=== PATIENT | male | born 1935 | race Two or more races ===

== ENCOUNTER → 2019-09-22 12:01 | Outpatient (CLI) | payer MEDICARE, SELFPAY | PROVIDERS: Visit Provider Nurse Practitioner Family | DX: I25.810 Atherosclerosis of coronary artery bypass graft(s) without angina pectoris (principal); I44.0 Atrioventricular block, first degree; I44.1 Atrioventricular block, second degree; I49.5 Sick sinus syndrome; R42 Dizziness and giddiness; Z95.1 Presence of aortocoronary bypass graft | CPT/HCPCS: 93306 ==

== ENCOUNTER 2019-10-01 09:26 | Day surgery (SDC) | payer MEDICARE, SELFPAY ==
[2019-10-01] VITALS (12 sets, daily range): BP systolic 86–162; BP diastolic 42–85; PULSE 65–90; RESP 16–18; TEMP 36.7; O2SAT 96–100; BMI 24.4
[2019-10-01 10:18] LABS: Basophils % 0.2 % (0.1-2.0); Eosinophils # 0.3 K/mm3 (0.0-0.4); Eosinophils % 3.4 % (0.1-12.0); Hematocrit 45.3 % (42.0-52.0); Hemoglobin 14.9 g/dL (14.1-18.0); Lymphocytes # 2.1 K/mm3 (0.7-4.5); Mean Corpuscular Hemoglobin 30.9 pg (27.0-31.2); Mean Corpuscular Volume 93.6 fl (80-94); Monocytes # 0.5 K/mm3 (0.1-1.0); Monocytes % 7.4 % (1.7-9.3); Neutrophils # 4.3 K/mm3 (1.8-7.8); Platelet Count 164 K/mm3 (142-424); Red Blood Count 4.83 M/mm3 (4.60-6.20); Red Cell Distribution Width 14.2 % (11.5-17.5); White Blood Count 7.1 K/mm3 (4.8-10.8)
[2019-10-01 10:27] LABS: Chloride 109 mmol/L (98-107); Potassium 4.6 mmoL/L (3.5-5.1); Sodium 140 mmol/L (136-145)
[2019-10-01 10:30] LABS: Anion Gap 10.6 mEq/L (5-15); Blood Urea Nitrogen 26 mg/dl (9-20); Carbon Dioxide 25 mmol/L (22.0-30.0); Creatinine Clearance Estimated 56 mL/min (50-200); Estimated Glomerular Filt Rate 71 ml/min (>60); GFR (African American) 86 ML/MIN (>60)
--- NOTE | 2019-10-01 10:30 | IR_ITS ---
APPROVED REPORT Patient Location: Outpatient Top Coater: RASHID Conrad RT (R) PROCEDURES 1. Pocket formation for Permanent Pacemaker Placement. 2. Placement of an atrial sensing and pacing coil into the right atrial appendage. 3. Placement of a ventricular sensing and pacing coil in the right ventricular apex. 4. Permanent Pacemaker Placement. INDICATION Symptomatic Bradycardia Informed consent was obtained prior to the procedure. COMPLICATIONS None Estimated Blood Loss: less than 10ml TECHNIQUE 1% Lidocaine with epinephrine used to anesthetized the left anterior aspect of the chest. Scalpel was used to make the initial cutaneous incision while electrocautery was used to dissect down tinto the fascia. The fascia was lifted off the pectoralis muscle and digitally manipulated creating a pocket for the pacemaker. The patient was then placed in Trendelenburg position and the subclavian vein was accessed twice via the Selinger technique, there are two wires in the vein. A 6 Finnish sheath was placed under fluoroscopic guidance into the subclavian vein over one of the wires while keeping the other wire in place within the subclavian vein. The dilator was removed from the sheath. Using fluoroscopic guidance, the ventricular lead was placed into the right ventricular apex, screwed and secured into place. Electronic interrogation proved acceptable thresholds and voltage within the lead. Using 3-0 silk, the ventricular lead was then secured into place. Lead was secured to the facia using the 3-0 silk. Following this, the sheath was pealed away. An additional 6 Finnish fresh sheath and dilator was placed over the existing wire. Using fluoroscopic guidance, the atrial lead was the placed into the right atrial appendage and screwed and secured in place. Electrical interrogation demonstrated acceptable thresholds and voltage number. The atrial lead was then secured into place using 3-0 silk. 1 gram of Ancef was used to flush the pocket. Following the pacemaker generator being secured to the fascia and in place, Monocryl was used to close the subcutaneous layers while sean were used to close the cutaneous layer. A pressure dressing was placed and the patient was transferred to the postop holding area in stable condition for postoperative care. INTERROGATION Generator Model number: Telepartner DR IS-1 L311 Generator Serial number: [id number] Atrial lead model number: Ingevity MRI IS-1 Bi Positive Fix RA/RV 52 cm 7741 Atrial lead serial number: [id number] P-wave: 2.0 mV Impedence: 450 Ohms Threshold: 1.0@0.4ms Right Ventricular lead model number: Ingevity MRI IS-1 Bi Positive Fix RA/RV 59 cm 7742 Right Ventricular lead serial number: [id number] R-wave: 10.0 mV Impedence: 950 Ohms Threshold: 1.0V@0.4ms Pacing Parameters: Mode:DDDR Base/Max Track:60 bpm/130 bpm No diaphragmatic stimulation at 10 volts. IMPRESSION 1. Successful pocket formation for Permanent Pacemaker Placement. 2. Successful placement of an atrial sensing and pacing coil into the right atrial appendage. 3. Successful placement of a ventricular sensing and pacing coil in the right ventricular apex. 4. Successful permanent Pacemaker Placement. PLAN 1. Post op wound care. Electronically signed by : Mono Corona, 10/08/2019 08:18:21
[2019-10-01 10:31] LABS: Calcium 9.1 mg/dl (8.4-10.2); Glucose 103 mg/dl (74-100)
--- NOTE | 2019-10-01 12:44 | XR_ITS ---
PROCEDURE: XR CHEST PORTABLE CLINICAL HISTORY: Confirm pacemaker/AID placement COMPARISON: Status post AICD placement, clear lungs, no pneumothorax FINDINGS: There is an AID with generator within the left mid supraclavicular soft tissues with overlying cutaneous sutures. This is attached to 2 cardiac leads. The patient is status post CABG. There is degenerative thoracic scoliosis. Heart is unremarkable. Lung cedeño are clear. IMPRESSION: Status post catheter placement, clear lung cedeño, no pneumothorax Dictated by: Gerardo Sawant 10/01/2019 14:40 Electronically signed by Gerardo Sawant in [place] 10/01/2019 14:40
--- NOTE | 2019-10-01 12:53 | HMH.ANESCL ---
[facility] Anesthesia Checklist - Patient Identification Patient Identification: Arm Band, Verbal (Name & ) - Structural Data Admitted From: Home Planned Operative Procedure/s: Placement of dual chamber pacemaker Consent for Planned Operative Procedure(s) Verified: Yes Verified Documents: Surgical Consent, History and Physical - NPO Status Verified Time NPO: 00:00 - Chart Verification Results Verified: CBC, BMP - Additional verifications Anesthesia Reactions: No Hx Blood Transfusions: No - Airway Assessment C-Spine Mobility Assessed: Yes TMJ Mobility Assessed: Yes Dentition: Partials - Neurological Assessment Level of Consciousness: Awake, Alert, Appropriate, Follows Commands Hx Seizures: No Numbness or tingling in extremities: No - Anesthesia Plan Anesthesia Risk discussed: Yes Anesthesia Plan: Verified ASA Class: III Anesthesia Type: MAC [facility] History I have reviewed the patient's past medical history: Yes Medical History: Reports:: Coronary Artery Disease, Hyperlipidemia Denies:: Cancer, Diabetes Mellitus Type 1, Diabetes Mellitus Type 2, Internal Pacemaker, MRSA *Have you ever received a pneumonia vaccine?: Yes *Have you received a flu vaccine this season?: Yes Other Medical History: Reports: Hypothyroidism Comment:: MORENITA Anesthesia experience/problems:: none Other Surgeries: Yes: CABG. No: Pacemaker Amputation: No Fractures: No - *Social History Smoking Status: Never smoker Alcohol Intake: never Substance Use Type: denies use *Occupational Status:: retired Housing: house Household Members: spouse *Travel in the last 8 weeks: None Family Hx:: Coronary Artery Disease, Heart Attack
== END 2019-10-01 14:56 | disposition home or self-care (01) ==
PROVIDERS: PCP Family Medicine; Visit Provider Internal Medicine
DX: I49.5 Sick sinus syndrome; I44.1 Atrioventricular block, second degree; I25.810 Atherosclerosis of coronary artery bypass graft(s) without angina pectoris; Z95.1 Presence of aortocoronary bypass graft; I95.9 Hypotension, unspecified; I25.10 Atherosclerotic heart disease of native coronary artery without angina pectoris; E03.9 Hypothyroidism, unspecified
CPT/HCPCS: 33208; 71045; 80048; 85025; C1785; C1898

== ENCOUNTER → 2020-07-25 13:48 | Outpatient (CLI) | payer MEDICARE, SELFPAY ==
[2020-07-25 15:03] LABS: Chloride 103 mmol/L (98-107)
[2020-07-25 15:04] LABS: Potassium 4.4 mmoL/L (3.5-5.1); Sodium 137 mmol/L (136-145)
[2020-07-25 15:06] LABS: Blood Urea Nitrogen 28 mg/dl (9-20); Estimated Glomerular Filt Rate 45 ml/min (>60); GFR (African American) 54 ML/MIN (>60)
[2020-07-25 15:07] LABS: Anion Gap 11.4 mEq/L (5-15); Calcium 9.7 mg/dl (8.4-10.2); Carbon Dioxide 27 mmol/L (22.0-30.0); Glucose 106 mg/dl (74-100); Magnesium 2.1 mg/dl (1.6-2.3)
== END ==
PROVIDERS: Visit Provider Urology
DX: R25.2 Cramp and spasm (principal)
CPT/HCPCS: 36415; 80048; 83735

== ENCOUNTER → 2022-11-07 14:32 | Outpatient (CLI) | payer MEDICARE, SELFPAY ==
--- NOTE | 2022-11-07 14:40 | CA_ITS ---
FINAL REPORT TECHNIQUE: Color Doppler, duplex Doppler and bello scale sonography of the bilateral neck vasculature was performed. Velocities were measured in the carotid arteries. Stenosis evaluation based on velocity criteria. CLINICAL HISTORY: dizziness, pacermaker, cad-cabg COMPARISON: None FINDINGS: The peak systolic velocity of the right common carotid artery is 75 cm/sec and internal carotid artery 79 cm/sec. The diastolic velocity in the internal carotid artery is 15 cm/sec. The ICA/CCA ratio is 1.4. Visually, a moderate amount of plaque is seen. These findings are consistent with less than 50% stenosis. The external carotid artery is patent. The right vertebral artery is patent with antegrade flow. The peak systolic velocity of the left common carotid artery is 91 cm/sec and internal carotid artery 113 cm/sec. The diastolic velocity in the internal carotid artery is 26 cm/sec. The ICA/CCA ratio is 1.3. Visually, a moderate amount of plaque is seen. These findings are consistent with less than 50% stenosis. The external carotid artery is patent. The left vertebral artery is patent with antegrade flow. IMPRESSION: No evidence of significant carotid stenosis. Bilateral patent vertebral arteries. If indicated, CTA or MRA could further evaluate. Reviewed, Interpreted and Dictated by Akira Green III, MD Transcribed by Diamante Camilo Authenticated and . [facility]
--- NOTE | 2022-11-07 14:40 | CA_ITS ---
APPROVED REPORT EXAM: Comprehensive 2D, Doppler, and color-flow Echocardiogram Core Drier: Georgette Cordova RVT Ht: 5 ft 7 in Wt: 150lbs BSA: 1.79 BP: 123/64 mmHg Indications: DIZZINESS,CAD,PACER,HLD,SOA 2D Dimensions LVOT 2.00 cm (M/F) 1.5-2.5 LA Volume 36.90 mL LA Volume Index 20.61 mL/m2 (M/F) 16-34 M-Mode Dimensions RVDd 3.54 cm (0.9-2.6) LA Diam 3.13 cm (1.9-4.0) LVDd 5.19 cm (3.5-5.7) Ao Diam 3.26 cm (2.0-3.7) LVDs 3.61 cm (3.5-5.7) IVSd 0.54 cm (0.6-1.1) PWd 0.64 cm (0.6-1.1) EF (Teich) 57.50% FS 30.40% EDV (Teich) 128.90 mL TAPSE 2.18 (<1.7) ESV (Teich) 54.80 mL LV Diastology E Decel Time 150.00 (160-240 msec) E/A Ratio 0.6 MED E' 5.60 (< 7 cm/sec) E'/MED E' Ratio 13.18 (>14) LAT E' 9.40 (<10 cm/sec) E/LAT E' Ratio 7.85 (>14) Aortic Valve AI PHT 657.00 ms AO Peak GR. 8.40 mmHg Mitral Valve MV E Max Eliseo. 74.00 (40-130 cm/s) MV A Velocity 114.00 (40-130 cm/s) E/A Ratio 0.65 MV Decel. Time 150.00 (160-240 ms) MV PHT 44.00 ms Pulmonary Valve PV Peak Velocity 87.00 (50-150 cm/s) Tricuspid Valve TR P. Velocity 270.00 cm/s RAP Estimate 10.00 mmHg RVSP 39.10 mmHg Left Ventricle The left ventricle is normal size. The left ventricular systolic function is normal. The left ventricular ejection fraction is within the normal range. There is increased LV wall thickness. The septum appears asynchronous. There are no other regional wall motion abnormalities. Diastolic function is indeterminate. LVEF is 55%. Right Ventricle Right ventricle is mildly dilated. The right ventricular systolic function is normal. Atria The left atrium size is normal. The right atrium size is normal. There is no Doppler evidence of interatrial shunt. Aortic Valve The aortic valve is trileaflet. The aortic valve opens well. There is no aortic valvular stenosis. Mild aortic regurgitation. Mitral Valve The mitral valve is normal in structure. Mild mitral regurgitation. Tricuspid Valve The tricuspid valve leaflets are thin and pliable. Mild tricuspid regurgitation. RVSP is 35-40 mmHg. Pulmonic Valve The pulmonary valve is normal in structure. Mild pulmonic regurgitation. Great Vessels The aortic root is normal in size. The ascending aorta is normal in size. IVC is normal in size and collapses >50% with inspiration. Other Information Study Quality: Adequate Conclusion Normal biventricular systolic function. Mild RV dilation. Mild AI, MR, TR, TN Elevated RVSP 35-40 mmHg. Electronically signed by : Crystal Fraser, 11/07/2022 20:09:37
== END ==
PROVIDERS: PCP Family Medicine; Visit Provider Internal Medicine
DX: E78.5 Hyperlipidemia, unspecified (principal); G47.33 Obstructive sleep apnea (adult) (pediatric); I25.10 Atherosclerotic heart disease of native coronary artery without angina pectoris; I95.9 Hypotension, unspecified; R09.89 Other specified symptoms and signs involving the circulatory and respiratory systems; R26.81 Unsteadiness on feet; R42 Dizziness and giddiness; Z95.0 Presence of cardiac pacemaker; Z95.1 Presence of aortocoronary bypass graft; I25.810 Atherosclerosis of coronary artery bypass graft(s) without angina pectoris
CPT/HCPCS: 93306; 93880

== ENCOUNTER 2023-11-06 12:37 | Outpatient (CLI) | payer MEDICARE, SELFPAY | END 2023-11-06 23:59 | disposition home or self-care (01) | LOC: RT 12:38 | PROVIDERS: Visit Provider Internal Medicine | DX: R42 Dizziness and giddiness (principal) | CPT/HCPCS: 93225; 93227 ==

== ENCOUNTER 2023-11-08 14:05 | Outpatient (CLI) | payer MEDICARE, SELFPAY ==
--- NOTE | 2023-11-08 14:06 | CA_ITS ---
APPROVED REPORT EXAM: Comprehensive 2D, Doppler, and color-flow Echocardiogram Food Service Worker: Georgette Cordova RVT Ht: 5 ft 7 in Wt: 140lbs BSA: 1.74 BP: 124/68 mmHg Indications: DIZZINESS,CABG,CAD,MORENITA,PACER,HLD 2D Dimensions LA Volume 27.90 mL LA Volume Index 16.03 mL/m2 (M/F) 16-34 M-Mode Dimensions RVDd 2.85 cm (0.9-2.6) LA Diam 3.18 cm (1.9-4.0) LVDd 4.07 cm (3.5-5.7) LVDs 2.66 cm (3.5-5.7) IVSd 1.10 cm (0.6-1.1) PWd 0.49 cm (0.6-1.1) EF (Teich) 64.30% FS 34.60% EDV (Teich) 72.90 mL TAPSE 1.79 (<1.7) ESV (Teich) 26.00 mL LV Diastology E Decel Time 150 (160-240 msec) E/A Ratio 0.6 Aortic Valve MICHELLE Index 1.20 cm2/m2 AoV Peak Eliseo. 132.0 (50-130 cm/s) AI PHT 665.00 ms AO Peak GR. 7.00 mmHg AO Mean GR. 3.50 (<5 mmHg) AO VTI 22.5 (18-25 cm) MICHELLE (VTI) 2.14 (2.5-4.5 cm2) Mitral Valve MV E Max Eliseo. 56.0 (40-130 cm/s) MV A Velocity 95.0 (40-130 cm/s) E/A Ratio 0.59 MV PHT 44.0 ms Pulmonary Valve PV Peak Velocity 79.0 (50-150 cm/s) Tricuspid Valve TR P. Velocity 223.00 cm/s RAP Estimate 10.00 mmHg RVSP 29.90 mmHg Left Ventricle The left ventricle is normal size. The left ventricular systolic function is normal. The left ventricular ejection fraction is within the normal range. There is increased LV wall thickness. There is normal LV segmental wall motion. Transmitral Doppler flow pattern suggests impaired LV relaxation. LVEF is 55%. Right Ventricle Right ventricle is mildly dilated. The right ventricular systolic function is normal. There is a device lead in the right ventricle. Atria The left atrium size is normal. The right atrium size is normal. The interatrial septum is not well-visualized. Aortic Valve The aortic valve is mildly thickened. There is no aortic valvular stenosis. Mild aortic regurgitation. Mitral Valve The mitral valve is mildly thickened. No evidence of mitral valve stenosis. Mild mitral regurgitation. Tricuspid Valve The tricuspid valve leaflets are thin and pliable. Mild tricuspid regurgitation. RVSP is 20-25 mmHg. Pulmonic Valve The pulmonary valve is normal in structure. Mild pulmonic regurgitation. Great Vessels The aortic root is normal in size. The ascending aorta is normal in size. IVC is normal in size and collapses >50% with inspiration. Pericardium There is no pericardial effusion. Other Information Study Quality: Fair Conclusion Normal LV systolic function. Mild RV dilation with normal LV systolic function. Mild AI, mild MR, mild TR, mild PI. Electronically signed by : Crystal Fraser MD 11/11/2023 00:22:59
== END 2023-11-08 23:59 | disposition home or self-care (01) ==
LOC: RT 14:06
PROVIDERS: Visit Provider Internal Medicine
DX: R42 Dizziness and giddiness (principal); I25.810 Atherosclerosis of coronary artery bypass graft(s) without angina pectoris; I95.9 Hypotension, unspecified; Z95.1 Presence of aortocoronary bypass graft; Z95.0 Presence of cardiac pacemaker; E78.2 Mixed hyperlipidemia
CPT/HCPCS: 93270; 93306

== ENCOUNTER 2023-11-18 14:35 | Outpatient (CLI) | payer MEDICARE, SELFPAY ==
[2023-11-18 15:33] LABS: Blood Urea Nitrogen 26 mg/dl (9-20); Estimated Glomerular Filt Rate 63 ml/min (>60); GFR (African American) 76 ML/MIN (>60)
[2023-11-20 11:33] LABS: PSA, Free 5.75 ng/mL; Prostate Specific Ag 10.3 ng/mL (0.0-4.0)
== END 2023-11-18 23:59 | disposition home or self-care (01) ==
LOC: LAB 14:37
PROVIDERS: Visit Provider Urology
DX: N40.2 Nodular prostate without lower urinary tract symptoms (principal); N40.1 Benign prostatic hyperplasia with lower urinary tract symptoms; N40.0 Benign prostatic hyperplasia without lower urinary tract symptoms
CPT/HCPCS: 36415; 82565; 84153; 84154; 84520

== ENCOUNTER 2024-06-22 12:29 | Outpatient (CLI) | payer MEDICARE, SELFPAY ==
[2024-06-22 13:35] LABS: Blood Urea Nitrogen 21 mg/dl (9-20); Estimated Glomerular Filt Rate 63 ml/min (>60); GFR (African American) 76 ML/MIN (>60)
[2024-06-23 08:24] LABS: PSA, Free 2.95 ng/mL; Prostate Specific Ag 6.7 ng/mL (0.0-4.0)
== END 2024-06-22 23:59 | disposition home or self-care (01) ==
PROVIDERS: Visit Provider Urology
DX: R97.20 Elevated prostate specific antigen [PSA] (principal); R39.15 Urgency of urination
CPT/HCPCS: 36415; 82565; 84153; 84154; 84520

== ENCOUNTER 2025-02-08 13:30 | Outpatient (CLI) | payer MEDICARE, SELFPAY ==
[2025-02-08 14:43] LABS: Microscopic, Urine URINE MICROSCOPIC (MICROSCOPIC)
[2025-02-08 16:56] LABS: Bilirubin,Urine Negative (Negative); Color,Urine YELLOW (Yellow); Glucose,Urine (UA) Negative (Negative); Ketones,Urine Negative (Negative); Leukocyte Esterase,Urine Negative (Negative); PH,Urine 6.0 (5.0-8.5); Protein,Urine Negative (Negative); Specific Gravity, Urine 1.025 (1.005-1.030); Urobilinogen,Urine 0.2 EU/dl (0.2)
[2025-02-08 17:44] LABS: Bacteria,Urine Trace /lpf
[2025-02-08 17:45] LABS: WBC,Urine Occasional #/hpf (0-3)
[2025-02-09 08:12] LABS: PSA, Free 1.63 ng/mL
== END 2025-02-08 23:59 | disposition home or self-care (01) ==
LOC: LAB 13:33
PROVIDERS: Visit Provider Urology
DX: N40.2 Nodular prostate without lower urinary tract symptoms (principal); R97.20 Elevated prostate specific antigen [PSA]; R39.15 Urgency of urination
CPT/HCPCS: 36415; 81001; 84153; 84154